=== PATIENT | male | born 1965 | race Caucasian/White ===

== ENCOUNTER 2019-07-18 06:42 | Inpatient (IN) | payer BC ==
[2019-07-18] VITALS (22 sets, daily range): BP systolic 100–149; BP diastolic 49–101
[~2019-07-18] VITALS: Ht 177.8 cm; Wt 137.9 kg
[2019-07-18 07:47] LABS: HEMATOCRIT 41.9 % (42.0-52.0); HEMOGLOBIN 14.3 gm/dL (14.0-18.0); MCH 28.7 pg (26.0-34.0); MCHC 34.2 g/dL (28.0-37.0); MCV 83.9 fL (80.0-100.0); MPV 8.7 fl. (7.2-11.1); NUCLEATED RBCS 0 /100WBC; PLATELET COUNT* 267 thou/uL (150-400); RBC 4.99 mil/uL (4.50-6.00); RDW-CV 13.7 % (10.5-14.5)
[2019-07-18 07:53] LABS: CALCIUM 8.1 mg/dL (8.5-10.1); CREATININE 1.2 mg/dL (0.6-1.3)
[2019-07-18 07:57] LABS: ALBUMIN 3.4 g/dL (3.4-5.0); TOTAL BILIRUBIN 0.9 mg/dL (<0.1-1.0); TOTAL PROTEIN 7.6 g/dL (6.4-8.2)
[2019-07-18 08:16] LABS: ABSOLUTE BASOPHILS 0.5 thou/uL (0.0-0.2); ABSOLUTE LYMPHOCYTES 0.2 thou/uL (0.8-5.3); ABSOLUTE MONOCYTES 0.7 thou/uL (0.0-1.2); ABSOLUTE NEUTROPHILS 22.6 thou/uL (1.6-8.1)
[2019-07-18 08:17] LABS: PLATELET ESTIMATE ADEQUATE
--- NOTE | 2019-07-18 10:23 | NUR ---
PT'S SON, SRINIVAS DOMINGO [phone], IS REQUESTING A PHONE CALL WHEN THE PATIENT IS FINISHED WITH SURGERY SO HE KNOWS WHEN TO PICK HIM UP.
--- NOTE | 2019-07-18 10:24 | NUR ---
PT HAS GINGERALE AT BEDSIDE, PT STATES HE HAS BEEN WASHING HIS MOUTH OUT WITH IT. APPROX 50 ML MISSING FROM BOTTLE. OR NURSE AT BEDSIDE, CALLED OR PHYSICIAN WHO WILL COME SPEAK TO THE PATIENT.
[2019-07-18 13:50] LABS: BE -8.1 mmol/L (-2 to +3)
--- NOTE | 2019-07-18 14:50 | OP ---
[address] [address] OPERATIVE REPORT Name: ALISTAIR DOMINGO Room: [address] Eren Rodriguez#: [id number] Admission: 07/18/19 Attend Phys: Katina Busch DO Discharge: Date of : 69 Report #: [id number] THIS REPORT FOR: //name// cc: ERIC Avendaño family physician/PCP ERIC Avendaño family physician/PCP ~ THIS REPORT FOR: //name// CC: Katina Busch [facility] physician/PCP DATE OF SERVICE: 07/18/2019 PREPROCEDURE DIAGNOSIS: Perforated appendicitis. POSTPROCEDURE DIAGNOSIS: Perforated appendicitis with diffuse purulent peritonitis. FINDINGS: Perforation at the base of the appendix with necrosis. There was a large appendicolith found at the site of the perforation, purulent fluid was found throughout the abdomen. Bowel was all very edematous and erythematous. SURGEON: Katina Busch DO. CO-SURGEON: Brannon Robles, PGY-3. PROCEDURE PERFORMED: Laparoscopic appendectomy with abdominal washout and drain placement. ANESTHESIA: General endotracheal and local. ESTIMATED BLOOD LOSS: 30 mL. SPECIMEN: Appendix. COMPLICATIONS: None. CONDITION: Stable. DISPOSITION: PACU to the floor. DRAINS: NG tube, Keyes, 15-Salvadorean CORNEL drain in the right lower quadrant. HISTORY OF PRESENT ILLNESS: The patient is a pleasant 53-year-old gentleman, who presented to the ER with a complaint of right lower quadrant abdominal pain for 1 day's duration. He was found to have leukocytosis and CT scan was positive for acute perforated appendicitis. [place] [address] OPERATIVE REPORT Name: ALISTAIR DOMINGO Room: [address] Andrew.#: [id number] Admission: 07/18/19 Attend Phys: Katina Busch DO Discharge: Date of : 69 Report #: [id number] laparoscopic appendectomy, possible open. Risks discussed included bleeding, infection, pain, scar formation, injury to bowel or bladder, need for an open procedure, need for drainage, and risks of general anesthesia. The patient understood these risks and elected to proceed. DESCRIPTION OF PROCEDURE: The patient was brought to the operating room. He was laid supine on the operating room table. SCDs were placed to bilateral lower extremities. The patient was receiving Zosyn in the perioperative period. General endotracheal anesthesia was induced by Anesthesia without issue. Keyes catheter was placed utilizing sterile technique. Abdomen was prepped and draped in the standard sterile fashion. Time-out was performed to verify patient and procedure. A 10 mL of 0.5% Marcaine were injected in the infraumbilical area. Incision was made with 11 blade. Cautery was used for hemostasis. S retractors were used to visualize the fascia. Fascia was grasped and elevated between 2 Kochers. Fascia was incised using cautery. Peritoneum was bluntly entered using a Felicity clamp. Finger was introduced into the abdomen to assure that there were no jess-incisional adhesions, none were identified. Two stitches of 0 Vicryl placed on the fascia. Selena trocar was introduced and secured with 0 Vicryl stitches. Abdomen was insufflated. The patient was placed head down and tilted left side down. Camera was introduced and a brief anterior abdominal exploration was undertaken with findings of diffuse peritoneal purulence. Small bowel was all distended and very erythematous. Two 5-mm trocars were introduced, both under direct visualization, one in the left lower quadrant, one in the suprapubic area. We turned our attention to the right lower quadrant. Small bowel was densely adherent down to the area of the cecum. This was all gently mobilized towards the patient's head. Multiple interloop abscesses were identified and were suctioned away. We were finally able to visualize the cecum and then immediately noted a perforation at the base of the appendix, which was leaking feculent material. The remainder of the appendix was identified and was able to be gently elevated. There was a significant amount of purulence in the right lower quadrant, which was all suctioned away. Then, using a combination of very gentle blunt dissection with the suction founding partner and a [place] dissector, a window was created at the base of the appendix. A 45 mm purple load Endo-JERMAINE stapler was introduced and the base of the appendix was clamped and stapled without difficulty. A 45 mm purple load Endo-JERMAINE stapler was then also used to take the mesentery of the appendix. Care was taken to make sure that we included the perforation during the last fire of our stapler. A large appendicolith was then also identified. The appendix and the appendicolith were both placed within the EndoCatch bag. Our staple lines were inspected. They appeared to be hemostatic. There was no bleeding or leakage noted from the area of the staple lines. The abdomen was then copiously irrigated until clear. Small bowel was also gently mobilized to try to identify any interloop abscesses, which were also suctioned away. A 15-Salvadorean CORNEL drain was then brought through our suprapubic port and was placed in the right lower quadrant and along the right gutter. The patient was then returned to supine. Any remaining fluid in the abdomen was suctioned away. Our trocars were removed [facility] [address] [place] [address] OPERATIVE REPORT Name: ALISTAIR DOMINGO Room: [address] Eren Rodriguez#: [id number] Admission: 07/18/19 Attend Phys: Katina Busch DO Discharge: Date of : 69 Report #: [id number] under direct visualization. There was no bleeding noted from the peritoneum. Abdomen was then completely desufflated. Selean trocar was removed and EndoCatch bag was removed with the specimen intact. It was then handed off for permanent pathology. Kochers were placed on the fascia of our infraumbilical port. Previously placed 0 Vicryl stitches were removed and a 0 Vicryl stitch was placed in a [id number] fashion with excellent approximation of the fascia. An additional 10 mL of 0.5% Marcaine were injected in the fascia. This wound was then closed in a layered fashion using deep and superficial stitches of 3-0 Vicryl in an inverted interrupted fashion. All skin wounds were closed with 4-0 Monocryl. A total of 30 mL of 0.5% Marcaine were injected in the wound. Drain was sutured into place using a 2-0 nylon. Wounds and drain were then cleansed and covered with Mastisol, Steri-Strips, 4 x 4s, and a Tegaderm. Drain was covered with a 4 x 4 and a Tegaderm. NG tube was also placed during surgery by Anesthesia. The patient was then allowed to awaken from anesthesia, was extubated and transported to the recovery room with no further difficulties. Counts were correct x 2 at the conclusion of the case. <ELECTRONICALLY SIGNED> By: Katina Busch DO 07/18/19 1450 1304 [id number] Busch DO /nt
[2019-07-18 15:01] LABS: BE -5.8 mmol/L (-2 to +3); PO2 119.3 mmHg (75.0-100.0)
[2019-07-18 15:05] LABS: pH 7.151 (7.340-7.450)
[2019-07-18 15:06] LABS: PCO2 72.9 mmHg (35.0-45.0)
[2019-07-18 16:46] LABS: BE -7.3 mmol/L (-2 to +3); PO2 105.4 mmHg (75.0-100.0)
[2019-07-18 16:48] LABS: PCO2 66.3 mmHg (35.0-45.0); pH 7.156 (7.340-7.450)
--- NOTE | 2019-07-18 18:41 | NUR ---
ASSUMED CARE OF PATIENT REMAINS ON VENT SECRETIONS CLEARING. SOME PURELENT DRAINAGE FROM CORNEL. AFEBRILE. DRESSINGS DRY AND INTACT.
[2019-07-18 20:08] LABS: BE -1.6 mmol/L (-2 to +3); PO2 115.7 mmHg (75.0-100.0); pH 7.311 (7.340-7.450)
[2019-07-18 20:11] LABS: PCO2 51.6 mmHg (35.0-45.0)
--- NOTE | 2019-07-18 21:02 | NUR ---
1999 ABG RESULTS RECEIVED. RESULTS COMMUNICATED TO DR. PEÑA. NO NEW ORDERS, VERIFIED ABG AND CXR 0300 07/19/19.
[2019-07-19] VITALS (368 sets, daily range): BP systolic 57–251; BP diastolic 31–241
[2019-07-19 03:28] LABS: HEMATOCRIT 37.5 % (42.0-52.0); HEMOGLOBIN 12.5 gm/dL (14.0-18.0); MCH 28.4 pg (26.0-34.0); MCHC 33.4 g/dL (28.0-37.0); MCV 85.1 fL (80.0-100.0); MPV 8.6 fl. (7.2-11.1); RBC 4.41 mil/uL (4.50-6.00); RDW-CV 14.2 % (10.5-14.5); WBC 20.9 thou/uL (4.0-11.0)
[2019-07-19 03:32] LABS: CREATININE 0.9 mg/dL (0.6-1.3)
[2019-07-19 03:34] LABS: CALCIUM 5.8 mg/dL (8.5-10.1); POTASSIUM 2.8 mmol/L (3.5-5.1)
[2019-07-19 03:37] LABS: BE 1.5 mmol/L (-2 to +3); PCO2 44.2 mmHg (35.0-45.0)
[2019-07-19 03:41] LABS: PO2 134.7 mmHg (75.0-100.0)
--- NOTE | 2019-07-19 03:54 | NUR ---
RECEIVED REPORT AND ASSUMED CARE OF PATIENT AT 1900. VSS. FULL ASSESSMENT COMPLETED CHARTED. BED LOCKED AND IN LOW POSITION.
--- NOTE | 2019-07-19 07:19 | NUR ---
LAB RESULTS COMMUNICATED WITH DR. PEÑA. ORDERS RECEIVED. ELECTROLYTE REPLACEMENT 40 MEQ POTASSIUM IN 100ML X 2 DOSES. OVERNIGHT PHARMACY NOT COMFORTABLE WITH ADDING SECOND DOSE. ADVISED TO WAIT FOR DAY PHARM TO ENTER. COMMUNICATED WITH PHARMACY/ ORDER WRITTEN AND SENT FOR SECOND DOSE. CALCIUM CHLORIDE 1GRAM X 2 DOSES MAINT FLUID D5 NS WITH 20MEQ KCL TO RUN AT 42ML/HR FIO2 TO 60%
[2019-07-19 14:01] LABS: BE 1.9 mmol/L (-2 to +3); PCO2 45.5 mmHg (35.0-45.0); PO2 86.2 mmHg (75.0-100.0); pH 7.396 (7.340-7.450)
[2019-07-19 15:59] LABS: ABSOLUTE BASOPHILS 0.1 thou/uL (0.0-0.2); ABSOLUTE EOSINOPHILS 0.3 thou/uL (0.0-0.7); ABSOLUTE LYMPHOCYTES 1.4 thou/uL (0.8-5.3); ABSOLUTE MONOCYTES 0.6 thou/uL (0.0-1.2); ABSOLUTE NEUTROPHILS 13.3 thou/uL (1.6-8.1); BASOPHILS 0.3 %; EOSINOPHILS 2.1 %; HEMATOCRIT 38.2 % (42.0-52.0); HEMOGLOBIN 12.9 gm/dL (14.0-18.0); MCH 28.8 pg (26.0-34.0); MCHC 33.7 g/dL (28.0-37.0); MCV 85.4 fL (80.0-100.0); MONOCYTES 3.6 %; MPV 8.5 fl. (7.2-11.1); NUCLEATED RBCS 0 /100WBC; PLATELET COUNT* 220 thou/uL (150-400); RBC 4.47 mil/uL (4.50-6.00); RDW-CV 14.2 % (10.5-14.5); WBC 15.6 thou/uL (4.0-11.0)
[2019-07-19 16:09] LABS: CALCIUM 7.6 mg/dL (8.5-10.1); CREATININE 1.1 mg/dL (0.6-1.3); MAGNESIUM 1.9 mg/dL (1.8-2.4); PHOSPHORUS* 2.8 mg/dL (2.5-4.9); POTASSIUM 3.7 mmol/L (3.5-5.1)
--- NOTE | 2019-07-19 16:30 | EKG ---
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 : 1965 Requested By: Vincent Glover Order Number: [id number] MD: Ye Farfan Measurements Intervals [place] Rate: 100 P: 67 SD: 156 QRS: 43 QRSD: 81 T: 32 QT: 452 QTc: 584 Interpretive Statements Sinus tachycardia Probable left atrial enlargement Abnormal R-wave progression, early transition Prolonged QT interval Baseline wander in lead(s) II,III,aVR,aVL,aVF,V1,V3,V4,V5,V6 Compared to ECG 08/30/2011 15:22:56 Prolonged QT interval now present Sinus rhythm no longer present Electronically Signed On 07-19-2019 16:29:32 CDT by Ye Farfan [email or web address] <ELECTRONICALLY SIGNED> By: Ye Farfan MD, [facility] 07/19/19 1629 0754 [id number] Ye Farfan MD, [facility] /EPI
--- NOTE | 2019-07-19 19:35 | NUR ---
PATIENT REMAINS ON VENT ALERT TO VOICE RESPONDS APPROPRIATELY. FIO2 ADJUSTED NEEDED. FAMILY GRANDDAUGHTER AWARE OF PT CONDITION. AFEBRILE PROGRESSING SLOWLY.
[2019-07-20] VITALS (40 sets, daily range): BP systolic 88–180; BP diastolic 55–91
--- NOTE | 2019-07-20 00:29 | NUR ---
RECEIVED REPORT AND ASSUMED CARE OF THE PATIENT AT 1900. VSS. BED LOCKED AND IN LOW POSITION. FULL ASSESSMENT COMPLETED CHARTED.
[2019-07-20 04:07] LABS: ABSOLUTE BASOPHILS 0.1 thou/uL (0.0-0.2); ABSOLUTE EOSINOPHILS 0.5 thou/uL (0.0-0.7); ABSOLUTE LYMPHOCYTES 1.4 thou/uL (0.8-5.3); ABSOLUTE MONOCYTES 0.6 thou/uL (0.0-1.2); ABSOLUTE NEUTROPHILS 10.7 thou/uL (1.6-8.1); BASOPHILS 0.5 %; EOSINOPHILS 4.1 %; HEMATOCRIT 36.6 % (42.0-52.0); HEMOGLOBIN 12.4 gm/dL (14.0-18.0); LYMPHOCYTES 10.7 %; MCH 29.1 pg (26.0-34.0); MCHC 33.9 g/dL (28.0-37.0); MCV 85.7 fL (80.0-100.0); MONOCYTES 4.2 %; MPV 8.3 fl. (7.2-11.1); NUCLEATED RBCS 0 /100WBC; PLATELET COUNT* 215 thou/uL (150-400); POLYS 80.5 %; RBC 4.27 mil/uL (4.50-6.00); RDW-CV 14.3 % (10.5-14.5); WBC 13.3 thou/uL (4.0-11.0)
[2019-07-20 04:22] LABS: CALCIUM 7.3 mg/dL (8.5-10.1); CREATININE 1.1 mg/dL (0.6-1.3); MAGNESIUM 2.1 mg/dL (1.8-2.4); PHOSPHORUS* 2.6 mg/dL (2.5-4.9); POTASSIUM 3.8 mmol/L (3.5-5.1)
[2019-07-20 05:03] LABS: BE 3.1 mmol/L (-2 to +3); PCO2 48.4 mmHg (35.0-45.0); pH 7.392 (7.340-7.450)
[2019-07-20 05:08] LABS: PO2 131.2 mmHg (75.0-100.0)
[2019-07-20 08:48] LABS: URINE BLOOD NEGATIVE (Negative); URINE CLARITY SL CLOUDY; URINE COLOR YELLOW; URINE GLUCOSE-RANDOM NEGATIVE (Negative); URINE KETONES NEGATIVE (Negative); URINE LEUKOCYTES-REFLEX NEGATIVE (Negative); URINE NITRITE-REFLEX NEGATIVE (Negative); URINE PROTEIN 1+ (Negative); URINE SPECIFIC GRAVITY >= 1.030 (1.005-1.030)
[2019-07-20 08:50] LABS: ICTOTEST (BILI CONFIRMATORY) Negative (Negative); URINE BILIRUBIN 1+ (Negative)
[2019-07-20 08:58] LABS: AMORPHOUS URATES Moderate /LPF (None Seen); BACTERIA-REFLEX 1-9 Few /HPF (None Seen); CASTS None Seen /LPF (None Seen); MUCUS 0-3 Light strn/LPF (None Seen); SQUAMOUS 0-3 Few /LPF (0-3); URIC ACID CRYSTALS 0-3 Few /LPF (None Seen); URINE RBC 0-2 Rare /HPF (0-2); URINE WBC-REFLEX 0-5 Rare /HPF (0-5)
[2019-07-20 09:19] LABS: BE 2.2 mmol/L (-2 to +3); PO2 94.6 mmHg (75.0-100.0); pH 7.403 (7.340-7.450)
--- NOTE | 2019-07-20 10:15 | NUR ---
INT ROUNDS: MET WITH PT, DTR INDIRA AND SON SRINIVAS. PT EXTUBATED THIS AM, ASKING FOR COFFEE. NURSE AWARE. PT IS S/P SURGERY FOR PERFORATED APPY. PT LIVES WITH SON/SRINIVAS. PT WORKS AND IS INDEPENDENT AND ACTIVE, USES CPAP. HASN'T HAD HH OR BEEN TO SNF IN PAST. STATES HE DOESN'T GO TO DR REGULARLY AND DOESN'T HAVE A PCP. OFFERED ASSIST TO FIND ONE AND HE DECLINED. PT PLANS TO [place] HOME [place]. WILL FOLLOW
--- NOTE | 2019-07-20 10:55 | NUR ---
PT PASSED WEENING TRIAL WITH NO COMPLICATIONS.PT EXTUBATED AT 1005 BY RT WITH SURGERY TEAM AT BEDSIDE.PT PLACED ON O2 NC.PT WILL REMAINS NPO UNTIL FURTHER NOTICE.WILL CONTINUE TO MONITOR.
--- NOTE | 2019-07-20 12:51 | NUR ---
Nutrition: Pt assessed for Luis score 11. Admitted with pulm edema. OG to LIS, O2 NC. NPO. Wt: 304#. BG 139, alb 3.4, prealb 13.3. No nutrition interventions at this time. Will follow for POC 07/22/19.
--- NOTE | 2019-07-20 18:01 | NUR ---
AFTER EXTUBATION PT HAS BEEN A/O X4,VSS,CSO IN PLACE.PT REMAINS ON 4L O2 NC/HOME BIPAP PRN.PT PROGRESSING TOWARDS GOALS.PAIN MANAGED WELL WITH IV MEDICATIONS.PT REMAINS NPO PER SURGERY ORDERS.PT AND FAMILY INFORMED OF PLAN OF CARE AND COMMUNICATES UNDERSTANDING.WILL CONTINUE TO MONITOR FOR DURATION OF SHIFT.
[2019-07-21] VITALS (7 sets, daily range): BP systolic 157–187; BP diastolic 59–96
--- NOTE | 2019-07-21 10:41 | NUR ---
ICU rounds: Tele status. Advanced to clear liquid diet
[2019-07-21 10:57] LABS: CALCIUM 7.6 mg/dL (8.5-10.1); CREATININE 0.7 mg/dL (0.6-1.3); MAGNESIUM 2.2 mg/dL (1.8-2.4); PHOSPHORUS* 2.8 mg/dL (2.5-4.9); POTASSIUM 3.6 mmol/L (3.5-5.1)
[2019-07-21 11:09] LABS: ABSOLUTE BASOPHILS 0.1 thou/uL (0.0-0.2); ABSOLUTE EOSINOPHILS 0.6 thou/uL (0.0-0.7); ABSOLUTE LYMPHOCYTES 1.8 thou/uL (0.8-5.3); ABSOLUTE MONOCYTES 0.8 thou/uL (0.0-1.2); ABSOLUTE NEUTROPHILS 10.2 thou/uL (1.6-8.1); BASOPHILS 0.5 %; EOSINOPHILS 4.7 %; HEMATOCRIT 36.7 % (42.0-52.0); HEMOGLOBIN 12.4 gm/dL (14.0-18.0); LYMPHOCYTES 13.4 %; MCH 29.3 pg (26.0-34.0); MCHC 33.7 g/dL (28.0-37.0); MCV 87.1 fL (80.0-100.0); MONOCYTES 5.6 %; MPV 8.7 fl. (7.2-11.1); NUCLEATED RBCS 0 /100WBC; POLYS 75.8 %; RBC 4.21 mil/uL (4.50-6.00); RDW-CV 14.1 % (10.5-14.5); WBC 13.5 thou/uL (4.0-11.0)
[2019-07-21 11:40] LABS: PLATELET COUNT* 188 thou/uL (150-400)
--- NOTE | 2019-07-21 16:35 | NUR ---
PT TO TRANSFER TO ROOM 103. REPORT GIVEN TO TRACEY FINLEY. ALL PT BELONGINGS SENT WITH PT INCLUDING CELL PHONE WITH PLANT ATTENDANT OR ASSISTANT OPERATOR AND HOME CPAP.
--- NOTE | 2019-07-21 17:24 | NUR ---
PATIENT BROUGHT TO ROOM 103 AT APPROX 1700. PATIENT IS ALERT AND ORIENTED X4. VSS ON ROOM AIR. ZOSYN INFUSING IN LEFT UPPER ARM. ORIENTED PATIENT TO ROOM AND UNIT. CALL LIGHT PLACED IN REACH. WILL CONTINUE WITH PLAN OF CARE.
[2019-07-22 03:13] LABS: HEMATOCRIT 34.9 % (42.0-52.0); HEMOGLOBIN 11.9 gm/dL (14.0-18.0); MCH 29.2 pg (26.0-34.0); MCHC 34.2 g/dL (28.0-37.0); MCV 85.4 fL (80.0-100.0); MPV 7.7 fl. (7.2-11.1); RBC 4.08 mil/uL (4.50-6.00); WBC 10.5 thou/uL (4.0-11.0)
[2019-07-22 03:22] LABS: CALCIUM 7.3 mg/dL (8.5-10.1); CREATININE 0.8 mg/dL (0.6-1.3); POTASSIUM 3.2 mmol/L (3.5-5.1)
--- NOTE | 2019-07-22 07:41 | NUR ---
PATIENT HAS SLEPT WELL THROUGHOUT THE NIGHT. VSS ON RA. MEDICATIONS GIVEN ORDERED AND CHARTED. ASSESSMENT CHARTED. PATIENT IS UP WITH SBA. IV IN RIGHT FOREARM-SL. IV ABT GIVEN WITHOUT ANY ADVERSE SIDE EFFECTS NOTED. LAP SITES X 3 ARE C/D/I. CORNEL DRAIN IN PLACE WITH MINIMAL DRAINAGE. PATIENT INSTRUCTED TO USE CALL LIGHT WHEN NEEDING ASSISTANCE. HOURLY ROUNDS MADE. WILL CONTINUE WITH PLAN OF CARE AND NURSING TO MONITOR.
--- NOTE | 2019-07-22 10:34 | NUR ---
Nutrition: follow up note. Diet advanced to Full Liquids today. No BM yet. Alb 3.4. GOALS: good po intake at meals, advance diet in timely manner. Mild to low nutrition risk.
--- NOTE | 2019-07-22 16:53 | NUR ---
ASSUMED CARE OF PATIENT AT APPROX 0730. ALERT AND ORIENTED X4. ASSESSMENT COMPLETED AND CHARTED. VSS ON ROOM AIR. PAIN MANAGED WITH ORAL OXY AND TYLENOL. ANTIBIOTICS INFUSED ORDERED. NO COMPLAINTS OF NAUSE AND PATIENT TOLERATING DIET. BOWEL MOVEMENT TODAY. CALL LIGHT WITHIN REACH. HOURLY ROUNDS COMPLETED. WILL CONTIMUE WITH PLAN OF CARE.
[2019-07-22 20:00] VITALS: BP 159/80
[2019-07-23] VITALS: BP 183/81
[2019-07-23 05:00] VITALS: BP 142/68
--- NOTE | 2019-07-23 05:43 | NUR ---
Alert and oriented x 4. He has lap sites x 3 w/gauze and opsite and they are clean,dry and intact. His drainage was orange in the CORNEL drain to the LLQ. He is passing gas and had a small BM yesterday. He is up independently in his room. He is on roomair and O2 sat has been 95-97%, lungs are clear and diminished. I did start him on an I.S. and he is doing good with that. He says he does use a Cpap at home but he doesn't want to use it here. He did sleep all night in his recliner. Pain meds gievn x 3 this shift.
[2019-07-23 09:11] LABS: ABSOLUTE BASOPHILS 0.1 thou/uL (0.0-0.2); ABSOLUTE EOSINOPHILS 0.8 thou/uL (0.0-0.7); ABSOLUTE LYMPHOCYTES 1.3 thou/uL (0.8-5.3); ABSOLUTE MONOCYTES 0.5 thou/uL (0.0-1.2); BASOPHILS 0.7 %; EOSINOPHILS 8.2 %; HEMATOCRIT 35.3 % (42.0-52.0); LYMPHOCYTES 13.6 %; MCV 85.3 fL (80.0-100.0); MONOCYTES 5.1 %; MPV 8.1 fl. (7.2-11.1); NUCLEATED RBCS 0 /100WBC; PLATELET COUNT* 251 thou/uL (150-400); POLYS 72.4 %; RBC 4.13 mil/uL (4.50-6.00); RDW-CV 13.7 % (10.5-14.5); WBC 9.7 thou/uL (4.0-11.0)
[2019-07-23 09:15] VITALS: BP 148/67
[2019-07-23 09:41] LABS: CREATININE 0.7 mg/dL (0.6-1.3); POTASSIUM 3.2 mmol/L (3.5-5.1)
[2019-07-23] MEDS ORDERED: AUGMENTIN 875-1 EACH PO (12:08)
--- NOTE | 2019-07-23 19:00 | NUR ---
PATIENT PLEASANT AND COOPERATIVE W/ ASSESS AND CARES. ABD SURG SITE DRSGS NOTED WNL. CORNEL NOTED SEROUS DRNG. PATIENT INDEP IN RM. SEE MAR. IV SITE WNL. CURRENTLY SITTING UP IN RECLINER. DENIES NURSING NEEDS AT THIS TIME. CALL LIGHT IN REACH. ~TJRN
[2019-07-23 20:00] VITALS: BP 137/62
[2019-07-24] VITALS (7 sets, daily range): BP systolic 146–148; BP diastolic 70–82
[2019-07-24 04:57] LABS: HEMATOCRIT 35.6 % (42.0-52.0); HEMOGLOBIN 12.3 gm/dL (14.0-18.0); MCH 29.3 pg (26.0-34.0); MCHC 34.5 g/dL (28.0-37.0); MCV 84.9 fL (80.0-100.0); MPV 8.2 fl. (7.2-11.1); NUCLEATED RBCS 0 /100WBC; PLATELET COUNT* 257 thou/uL (150-400); RDW-CV 13.4 % (10.5-14.5); WBC 9.8 thou/uL (4.0-11.0)
[2019-07-24 05:18] LABS: CALCIUM 7.8 mg/dL (8.5-10.1); CREATININE 0.8 mg/dL (0.6-1.3); POTASSIUM 3.3 mmol/L (3.5-5.1)
--- NOTE | 2019-07-24 06:03 | NUR ---
Alert and oriented x 4. He is up independently in the room.Lapsites x 3 to abdomen with gauze and opsite dry and intact. He has been sitting up in the recliner all of this shift. He had oral pain meds x 2. It seemed like he has slept this shift.
[2019-07-24 06:50] LABS: ABSOLUTE BASOPHILS 0.1 thou/uL (0.0-0.2); ABSOLUTE EOSINOPHILS 0.2 thou/uL (0.0-0.7); ABSOLUTE LYMPHOCYTES 1.9 thou/uL (0.8-5.3); ABSOLUTE MONOCYTES 0.3 thou/uL (0.0-1.2); ABSOLUTE NEUTROPHILS 7.4 thou/uL (1.6-8.1); PLATELET ESTIMATE ADEQUATE
[2019-07-24 06:51] LABS: MICROCYTES 2+
[2019-07-24] MEDS ORDERED: TYLENOL EXTRA500 MG PO (08:05)
[2019-07-24] MEDS ORDERED: ADVIL200 M1 PO (08:10)
[2019-07-24] MEDS ORDERED: COLACE100 MG PO (08:11)
[2019-07-24] MEDS ORDERED: MIRALAX119 GM PO (08:12)
[2019-07-24] MEDS ORDERED: ROXICODONE5 M2 PO (08:19)
--- NOTE | 2019-07-24 10:30 | NUR ---
PATIENT DISCHARGED TO HOME FOR SELF CARE. CORNEL DRAIN DISCONTINUED PER SURGERY. SITE NOTED WNL, NEW DRSG APPLIED, MIN RED DRNG TO OLD DRSG. STERI STRIPS NOTED INTACT TO 2 ABD SURG SITES. DISCHARGE INSTRUCTIONS REVIEWED W/ PATIENT, PATIENT STATES VERBALLY OF UNDERSTANDING. 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 PATIENT DRESSES INDEP, BELONINGS WITH PATIENT AT TIME OF DISCHARGE. NO FURTHER NURSING NEEDS VOICED. SCRIPTS GIVEN TO FAMILY MEMBER YESTERDAY AND ARE FILLED, PER PATIENT. HRLY ROUNDS DONE. ~TACORN
== END 2019-07-24 10:30 | disposition home or self-care (01) | DRG 339 ==
LOC: M.ERS 06:42 → M.TBA-ER 10:09 → M.ICU 10:09 → M.ORTHSURG 07-19 08:07 → M.ICU 07-19 08:07 → M.ORTHSURG 07-21 17:04
PROVIDERS: Family Medicine; ADMIT Surgery
PROC: 03HY32Z Insertion of Monitoring Device into Upper Artery, Percutaneous Approach (ICD-10-PCS; principal; 2019-07-18)
PROC: 0DTJ4ZZ Resection of Appendix, Percutaneous Endoscopic Approach (ICD-10-PCS; principal; 2019-07-18)
PROC: 05HY33Z Insertion of Infusion Device into Upper Vein, Percutaneous Approach (ICD-10-PCS; 2019-07-20)
DX: K35.32 Acute appendicitis with perforation, localized peritonitis, and gangrene, without abscess (principal); K56.7 Ileus, unspecified; F17.210 Nicotine dependence, cigarettes, uncomplicated; G47.33 Obstructive sleep apnea (adult) (pediatric); E87.6 Hypokalemia; Z90.49 Acquired absence of other specified parts of digestive tract; Z83.3 Family history of diabetes mellitus; Z80.0 Family history of malignant neoplasm of digestive organs; Z79.899 Other long term (current) drug therapy; Z28.21 Immunization not carried out because of patient refusal